=== PATIENT | male | born 1950 | race American Indian/Alaskan Native ===

== ENCOUNTER 2020-05-10 19:20 | Inpatient (IN) | payer MEDICARE ==
[2020-05-10] MEDS ORDERED: LORazepam 2 MG/ML VIAL IM PRN (19:36)
[2020-05-10] MEDS ORDERED: HALOPERIDOL LACTATE 5 MG/1 ML INJ IM PRN (19:36)
[2020-05-11 07:51] LABS: Chol/HDL Ratio 3.16 %
--- NOTE | 2020-05-11 09:11 | History and Physical Report ---
GP History & Physical - History of Present Illness Date of admission: 05/10/20 Date of Examination: 05/11/20 Reason for Admission: Danger to self, Failure of Outpatient Treatment, Unable to care for self History of Present Illness: Michael Rosenberg is a 69y/o male patient who was admitted to the [facility] for wanting to jump out of a window. During my interview with the patient this morning, he is sitting in the dayroom. He says he's "not doing too good." When asked what was wrong, he says "I have a headache." The patient says "I feel nervous." He then says "I'm not sure whats going on, if I knew that I wouldn't be here." He denies SI/HI at present, but states that he "was at one point." The patient says he "hears voices telling me to do stuff." When asked what were they saying, he again replied "If I knew that I wouldn't be here." PAST PSYCHIATRIC HISTORY: Diagnoses: schizophrenia Suicide attempts or Self-harm behavior no response Prior psychiatric hospitalizations no response Substance Abuse history: no response Previous psychiatric medications tried: no response Outpatient treatment: PAST MEDICAL HISTORY: CHF, COPD, CVA Family Psychiatric History: None reported or documented SOCIAL HISTORY Marital Status: no response Living Arrangements: no response Employment Status: no response Access to guns/weapons: no response Education: no response History of Abuse: no response Legal History: no response REVIEW OF SYSTEMS Constitutional: Negative for weight loss ENT: Negative for stridor Respiratory: Negative for cough or hemoptysis All other systems reviewed and are negative MENTAL STATUS EXAMINATION General Appearance and Behavior: Age appropriate, good hygiene, wearing appropriate clothes, fair eye contact Cooperation: Participating/engaged, but Guarded Psychomotor Behavior: Psychomotor normal Mood: depressed, "not good" Affect and affective range: Restricted Thought Process: goal directed Thought Content: passive thoughts of dying Speech: Normal rate, volume Suicidal Ideation: Yes Homicidal Ideation: Denies Hallucinations: Denies Delusions: None elicited Impulse Control: Impaired Insight and Judgment: Limited insight and judgment Memory: Limited Attention: Normal Orientation: Alert, Assessment and Plan (1) Dementia with Behavioral Disturbance Current Visit: Yes Status: Acute Treatment Plan Patient admitted for inpatient psychiatric evaluation, medication adjustment and close monitoring The patient's behavior, mood, sleep and appetite will be closely monitored. Patient enrolled in individual and group therapeutic sessions and encouraged to attend. Patient provided with a safe and structured environment. Patient's physical health needs will be addressed by the Hospitalist. Hospitalist Consulted Labs including CBC, CMP, Lipid profile and Hemoglobin A1C levels ordered for baseline reference Restarted home meds Start Risperidone 0.25mg po BID Social Assessment will be completed and the Real Estate Rep will work with patient and family to ensure a suitable and safe disposition Medication adjustment will be made as clinically indicated Usual Wellness Sikh/Preservation: - Start Trazodone 50 mg po QHS & 50 mg po QHS PRN between 10 PM & 2 AM for insomnia - Start Melatonin 5 mg po QHS to promote circadian rhythm - Start Pierre-3 for brain health, reduce impulsivity, and as adjunctive treatment for mood disorder, continue upon discharge given overall benefits. - Start B1 prophylaxis with 200 mg po for 5 days Estimated days: 5 Post hospital care: primary care provider, psychiatric provider Legal Status: Voluntary Reaction to Hospitalization: Accepting Medications and Allergies Allergies Allergy/AdvReac Type Severity Reaction Status Date / Time No Known Allergies Allergy Verified 10/20/13 10:35 Home Medications Medication Instructions Recorded Confirmed Last Taken Type Aspirin 325 mg PO ONCE 10/15/13 10/15/13 Unknown History Atorvastatin [Lipitor] 80 mg PO QHS 10/15/13 05/11/20 Unknown History Clopidogrel Bisulfate [Plavix] 75 mg PO DAILY 10/15/13 10/15/13 Unknown History Esomeprazole Magnesium [NexIUM] 40 mg PO QDAY 10/15/13 10/15/13 Unknown History Docusate Sodium [Colace CAP] 100 mg PO BID PRN #30 capsule 01/25/15 Unknown Rx Lisinopril [Zestril] 5 mg PO DAILY 05/11/20 05/11/20 Unknown History Memantine [Namenda] 10 mg PO DAILY 05/11/20 05/11/20 Unknown History Valproic Acid [DepaKENE] 250 mg PO BID 05/11/20 05/11/20 Unknown History carvediloL [Coreg] 3.125 mg PO BID 05/11/20 05/11/20 Unknown History Active Meds: Active Medications Aspirin (Aspirin) 325 mg PO ONCE [facility] Atorvastatin Calcium (Lipitor) 80 mg PO QHS [facility] Carvedilol (Coreg) 3.125 mg PO BID [facility] Clopidogrel Bisulfate (Plavix) 75 mg PO DAILY [facility] Docusate Sodium (Colace) 100 mg PO BID PRN PRN Reason: Constipation Haloperidol Lactate (Haldol) 5 mg IM ONCE PRN PRN Reason: Agitation Lisinopril (Zestril) 5 mg PO DAILY [facility] Lorazepam (Ativan) 2 mg IM Q4HR PRN PRN Reason: Agitation Memantine (Memantine) 10 mg PO DAILY [facility] Miscellaneous Medication (Esomeprazole Magnesium [Nexium]) 40 mg PO QDAY [facility] Risperidone (Risperdal) 0.25 mg PO BID [facility] Valproic Acid (Depakene) 250 mg PO BID [facility] Results - Results Labs/Vitals: Laboratory Last Values Hemoglobin A1c 5.8 % (4-6) 05/11/20 06:49 Triglycerides 106 mg/dL (2-149) 05/11/20 06:49 Cholesterol 136 mg/dL (50-199) 05/11/20 06:49 LDL Cholesterol Direct 87 mg/dL (50-130) 05/11/20 06:49 HDL Cholesterol 43 mg/dL (40-59) 05/11/20 06:49 Cholesterol/HDL Ratio 3.16 % 05/11/20 06:49 TSH 2.120 mlU/mL (0.270-4.200) 05/11/20 06:49 Last Vital Signs Temp 97.8 F 05/11/20 07:04 Pulse 65 05/11/20 07:04 Resp 16 05/11/20 07:04 BP 135/73 05/11/20 07:04 Pulse Ox 96 05/11/20 07:04 Physical Examination - Constitutional Vitals: Vital Signs Temp Pulse Resp BP Pulse Ox 97.8 F 65 16 135/73 96 05/11/20 07:04 05/11/20 07:04 05/11/20 07:04 05/11/20 07:04 05/11/20 07:04 Temperature -Last 24 Hours Temperature 97.8 F Temperature 97.7 F Mental Status Exam - Vital signs Last Vital Signs Temp 97.8 F 05/11/20 07:04 Pulse 65 05/11/20 07:04 Resp 16 05/11/20 07:04 BP 135/73 05/11/20 07:04 Pulse Ox 96 05/11/20 07:04 Physician Certification - Certification Statement Physician Certification Statement: This is an acknowledgement statement that MICHAEL MCCOY is a 69 year old M who requires inpatient psychiatric admission for treatment which could reasonably be expected to improve the patient's condition for Estimated period of time patient will need to remain in the hospital: [ ] Plan for post-hospital care: [ ]
[2020-05-11] MEDS: CLOPIDOGREL 75 MG TAB PO SCH (09:28)
[2020-05-11] MEDS: OMEGA-3 FATTY ACIDS/FISH OIL 1 GRAM CAP PO SCH ×2 (09:29→21:28)
[2020-05-11] MEDS: carvediloL 3.125 MG TAB PO SCH ×2 (09:29→21:26)
[2020-05-11] MEDS: MEMANTINE 10 MG TAB PO SCH (09:29)
[2020-05-11] MEDS: risperiDONE 0.25 MG TAB PO SCH ×2 (09:30→21:28)
[2020-05-11] MEDS: VALPROIC ACID 250 MG CAP PO SCH ×2 (09:30→21:28)
[2020-05-11] MEDS: LISINOPRIL 5 MG TAB PO SCH (09:30)
[2020-05-11] MEDS ORDERED: ASPIRIN 325 MG TAB PO SCH (10:00)
[2020-05-11] MEDS ORDERED: DOCUSATE SODIUM 100 MG CAP PO PRN (10:00)
[2020-05-11] MEDS ORDERED: NON-FORMULARY EACH (Esomeprazole Magnesium [Nexium] 40 MG) PO SCH (10:00)
[2020-05-11] MEDS: PANTOPRAZOLE 40 MG TAB PO SCH (10:58)
--- NOTE | 2020-05-11 12:06 | Consultation ---
History of Present Illness - Reason for Consult Consult date: 05/11/20 Medical management Requesting physician: JOANNE GARAY - History of Present Illness 69 YO Male with HTN, CAD, [place], Asthma, COPD, CHF admitted to [facility] for Psychiatric stabilization. Consult placed by Dr. Garay for medical management. Patient seen and evaluated in the recreation room. Patient resting comfortably. No reported nursing events. Patient denies any new complaints. Patient denies fever, chills, chest pain, palpitation, productive cough, skin rash, recent ill contacts, or known exposure to COVID-19. Past History Past Medical History: acute FL, CAD, heart failure, hypertension, other (See HPI) Past Surgical History: No surgical history, Other (Reviewed) Social history: single. denies: smoking, alcohol abuse, prescription drug abuse Family history: diabetes, hypertension Medications and Allergies Allergies Allergy/AdvReac Type Severity Reaction Status Date / Time No Known Allergies Allergy Verified 10/20/13 10:35 Home Medications Medication Instructions Recorded Confirmed Last Taken Type Aspirin 325 mg PO ONCE 10/15/13 10/15/13 Unknown History Atorvastatin [Lipitor] 80 mg PO QHS 10/15/13 05/11/20 Unknown History Clopidogrel Bisulfate [Plavix] 75 mg PO DAILY 10/15/13 10/15/13 Unknown History Esomeprazole Magnesium [NexIUM] 40 mg PO QDAY 10/15/13 10/15/13 Unknown History Docusate Sodium [Colace CAP] 100 mg PO BID PRN #30 capsule 01/25/15 Unknown Rx Furosemide [Lasix] 20 mg PO QDAY #30 tablet 05/11/20 Unknown Rx Lisinopril [Zestril] 5 mg PO DAILY 05/11/20 05/11/20 Unknown History Memantine 10 mg PO DAILY 05/11/20 05/11/20 Unknown History Valproic Acid [Depakene] 250 mg PO BID 05/11/20 05/11/20 Unknown History carvediloL [Coreg] 3.125 mg PO BID 05/11/20 05/11/20 Unknown History Active Meds: Active Medications Aspirin (Aspirin) 325 mg PO ONCE [facility] Stop: 05/11/20 12:30 Last Admin: 05/11/20 10:58 Dose: 325 mg Documented by: Atorvastatin Calcium (Lipitor) 80 mg PO QHS [facility] Carvedilol (Coreg) 3.125 mg PO BID [facility] Last Admin: 05/11/20 09:29 Dose: 3.125 mg Documented by: Clopidogrel Bisulfate (Plavix) 75 mg PO DAILY [facility] Last Admin: 05/11/20 09:28 Dose: 75 mg Documented by: Docusate Sodium (Colace) 100 mg PO BID PRN PRN Reason: Constipation Fish Oil (Fish Oil) 2,000 mg PO BID [facility] Last Admin: 05/11/20 09:29 Dose: 2,000 mg Documented by: Haloperidol Lactate (Haldol) 5 mg IM ONCE PRN PRN Reason: Agitation Lisinopril (Zestril) 5 mg PO DAILY [facility] Last Admin: 05/11/20 09:30 Dose: 5 mg Documented by: Lorazepam (Ativan) 2 mg IM Q4HR PRN PRN Reason: Agitation Melatonin (Melatonin) 5 mg PO QHS PRN PRN Reason: Sleep Memantine (Memantine) 10 mg PO DAILY [facility] Last Admin: 05/11/20 09:29 Dose: 10 mg Documented by: Pantoprazole Sodium (Protonix) 40 mg PO DAILY [facility] Last Admin: 05/11/20 10:58 Dose: 40 mg Documented by: Risperidone (Risperdal) 0.25 mg PO BID [facility] Last Admin: 05/11/20 09:30 Dose: 0.25 mg Documented by: Trazodone HCl (Desyrel) 50 mg PO QHS [facility] Valproic Acid (Depakene) 250 mg PO BID [facility] Last Admin: 05/11/20 09:30 Dose: 250 mg Documented by: Review of Systems Constitutional: no weight loss, no weight gain, no fever, no sweats Ears, nose, mouth and throat: no ear pain, no ear discharge, no nose pain, no nasal congestion Cardiovascular: no chest pain, no orthopnea, no palpitations, no edema Respiratory: no cough, no hemoptysis, no dyspnea on exertion Gastrointestinal: no nausea, no vomiting, no constipation Genitourinary Male: no hematuria, no discharge, no urinary hesitancy, no incontinence Rectal: no pain, no bleeding Musculoskeletal: no low back pain, no redness of joints Integumentary: no deferred, no sores, no boils Neurological: no transient paralysis, no paralysis, no numbness, no syncope Psychiatric: no memory loss, no insomnia, no change in libido, no suicidal ideation Endocrine: no cold intolerance, no heat intolerance, no polydipsia, no nocturia, no flushing Hematologic/Lymphatic: no easy bleeding, no lymphedema Allergic/Immunologic: no allergic rhinitis, no persistent infections Exam - Constitutional Vitals: Temp Pulse Resp BP Pulse Ox 97.8 F 65 16 135/73 96 05/11/20 07:04 05/11/20 09:29 05/11/20 07:04 05/11/20 09:29 05/11/20 07:04 General appearance: Present: no acute distress, well-nourished, obese - EENT Eyes: Present: PERRL ENT: hearing intact, clear oral mucosa - Neck Neck: Present: supple, normal ROM - Respiratory Respiratory effort: normal Respiratory: bilateral: CTA - Cardiovascular Heart Sounds: Present: S1 & S2. Absent: rub, click - Extremities Extremities: pulses symmetrical, No edema Peripheral Pulses: within normal limits - Abdominal General gastrointestinal: Present: soft, non-tender, non-distended, normal bowel sounds Male genitourinary: Present: normal - Integumentary Integumentary: Present: clear, warm, dry - Musculoskeletal Musculoskeletal: gait normal, strength equal bilaterally - Psychiatric Psychiatric: appropriate mood/affect, intact judgment & insight - Neurologic Neurologic: CNII-XII intact, moves all extremities Assessment and Plan - Patient Problems (1) Hypertension Current Visit: Yes Status: Acute Qualifiers: Hypertension type: essential hypertension Qualified Code(s): I10 - Essential (primary) hypertension Plan to address problem: Continue medical management, monitor blood pressure every shift, hold antihypertensive therapy for systolic blood pressure less than 100 (2) CAD (coronary artery disease) Current Visit: No Status: Chronic Qualifiers: Associated angina: without angina Plan to address problem: Supportive care, antiplatelet therapy, risk factor reduction. (3) CHF (congestive heart failure) Current Visit: No Status: Chronic Plan to address problem: No clinical symptoms of CHF decompensation at this time, continue diuresis, strict I's/O, monitor urine output every shift, daily weight, low-sodium diet.
[2020-05-11] MEDS: ACETAMINOPHEN 325 MG TAB PO PRN (13:22)
[2020-05-11] MEDS: traZODone 50 MG TAB PO SCH (21:28)
[2020-05-11] MEDS ORDERED: MELATONIN 5 MG TAB PO PRN (22:00)
[2020-05-12] MEDS: OMEGA-3 FATTY ACIDS/FISH OIL 1 GRAM CAP PO SCH ×3 (01:15→21:14)
[2020-05-12] MEDS: risperiDONE 0.25 MG TAB PO SCH ×3 (01:15→21:12)
[2020-05-12] MEDS: traZODone 50 MG TAB PO SCH ×2 (01:15→21:15)
[2020-05-12] MEDS: VALPROIC ACID 250 MG CAP PO SCH ×3 (01:15→21:15)
[2020-05-12] MEDS: carvediloL 3.125 MG TAB PO SCH ×3 (01:15→21:11)
--- NOTE | 2020-05-12 09:01 | Progress Note ---
Subjective Date of service: 05/12/20 Principal diagnosis: Dementia with Behavioral Disturbance, Major Depressive Disorder Subjective Comment: During my interview with the patient this morning, he is awake in the dayroom. He is calm and cooperative. When asking him how he felt, he initially says, "I don't know. You tell me." He says he's "walking around with severe depression." The patient says "I don't know what to do about it." He denies SI/HI at present, "but says I thought about it last night, but no I'm not ready to leave here." He says he slept good and his appetite is good." He denies hallucinations of any kind. Reason for continued inpatient treatment: The patient continue to be depressed and have thoughts of dying. REVIEW OF SYSTEMS Constitutional: Negative for weight loss ENT: Negative for stridor Respiratory: Negative for cough or hemoptysis All other systems reviewed and are negative MENTAL STATUS EXAMINATION General Appearance and Behavior: Age appropriate, good hygiene, wearing appropriate clothes, fair eye contact, calm and cooperative Cooperation: Participating/engaged, but Guarded Psychomotor Behavior: Psychomotor normal Mood: depressed Affect and affective range: Restricted Thought Process: goal directed Thought Content: passive thoughts of dying Speech: Normal rate, volume Suicidal Ideation: Yes Homicidal Ideation: Denies Hallucinations: Denies Delusions: None elicited Impulse Control: Impaired Insight and Judgment: Limited insight and judgment Memory: Limited Attention: Normal Orientation: Alert, Assessment and Plan (1) Dementia with Behavioral Disturbance Current Visit: Yes Status: Acute (2) Major Depressive Disorder Treatment Plan Patient admitted for inpatient psychiatric evaluation, medication adjustment and close monitoring The patient's behavior, mood, sleep and appetite will be closely monitored. Patient enrolled in individual and group therapeutic sessions and encouraged to attend. Patient provided with a safe and structured environment. Patient's physical health needs will be addressed by the Hospitalist. Hospitalist Consulted Labs including CBC, CMP, Lipid profile and Hemoglobin A1C levels ordered for baseline reference Started Zoloft 25mg po daily Social Assessment will be completed and the Superintendent Storage Area will work with patient and family to ensure a suitable and safe disposition Medication adjustment will be made as clinically indicated Usual Wellness Spiritism/Preservation: - Start Trazodone 50 mg po QHS & 50 mg po QHS PRN between 10 PM & 2 AM for insomnia - Start Melatonin 5 mg po QHS to promote circadian rhythm - Start Tererro-3 for brain health, reduce impulsivity, and as adjunctive treatment for mood disorder, continue upon discharge given overall benefits. - Start B1 prophylaxis with 200 mg po for 5 days Estimated days: 5 Post hospital care: primary care provider, psychiatric provider Legal Status: Voluntary Reaction to Hospitalization: Accepting Medications and Allergies Allergies Allergy/AdvReac Type Severity Reaction Status Date / Time No Known Allergies Allergy Verified 10/20/13 10:35 Home Medications Medication Instructions Recorded Confirmed Last Taken Type Aspirin 325 mg PO ONCE 10/15/13 05/12/20 Unknown History Atorvastatin [Lipitor] 80 mg PO QHS 10/15/13 05/11/20 Unknown History Clopidogrel Bisulfate [Plavix] 75 mg PO DAILY 10/15/13 05/12/20 Unknown History Esomeprazole Magnesium [NexIUM] 40 mg PO QDAY 10/15/13 05/12/20 Unknown History Docusate Sodium [Colace CAP] 100 mg PO BID PRN #30 capsule 01/25/15 05/12/20 Unknown Rx Furosemide [Lasix] 20 mg PO QDAY #30 tablet 05/11/20 05/12/20 Unknown Rx Lisinopril [Zestril] 5 mg PO DAILY 05/11/20 05/11/20 Unknown History Memantine 10 mg PO DAILY 05/11/20 05/11/20 Unknown History Valproic Acid [Depakene] 250 mg PO BID 05/11/20 05/11/20 Unknown History carvediloL [Coreg] 3.125 mg PO BID 05/11/20 05/11/20 Unknown History Active Meds: Active Medications Acetaminophen (Tylenol) 650 mg PO Q6H PRN PRN Reason: Pain, Mild (1-3) Last Admin: 05/11/20 13:22 Dose: 650 mg Documented by: Atorvastatin Calcium (Lipitor) 80 mg PO QHS [facility] Last Admin: 05/12/20 01:15 Dose: 80 mg Documented by: Carvedilol (Coreg) 3.125 mg PO BID [facility] Last Admin: 05/12/20 01:15 Dose: 3.125 mg Documented by: Clopidogrel Bisulfate (Plavix) 75 mg PO DAILY [facility] Last Admin: 05/11/20 09:28 Dose: 75 mg Documented by: Docusate Sodium (Colace) 100 mg PO BID PRN PRN Reason: Constipation Fish Oil (Fish Oil) 2,000 mg PO BID [facility] Last Admin: 05/12/20 01:15 Dose: 2,000 mg Documented by: Furosemide (Lasix) 20 mg PO QDAY [facility] Haloperidol Lactate (Haldol) 5 mg IM ONCE PRN PRN Reason: Agitation Lisinopril (Zestril) 5 mg PO DAILY [facility] Last Admin: 05/11/20 09:30 Dose: 5 mg Documented by: Lorazepam (Ativan) 2 mg IM Q4HR PRN PRN Reason: Agitation Melatonin (Melatonin) 5 mg PO QHS PRN PRN Reason: Sleep Memantine (Memantine) 10 mg PO DAILY [facility] Last Admin: 05/11/20 09:29 Dose: 10 mg Documented by: Pantoprazole Sodium (Protonix) 40 mg PO DAILY [facility] Last Admin: 05/11/20 10:58 Dose: 40 mg Documented by: Risperidone (Risperdal) 0.25 mg PO BID [facility] Last Admin: 05/12/20 01:15 Dose: 0.25 mg Documented by: Trazodone HCl (Desyrel) 50 mg PO QHS [facility] Last Admin: 05/12/20 01:15 Dose: 50 mg Documented by: Valproic Acid (Depakene) 250 mg PO BID [facility] Last Admin: 05/12/20 01:15 Dose: 250 mg Documented by: Results - Results Labs/Vitals: Laboratory Last Values Hemoglobin A1c 5.8 % (4-6) 05/11/20 06:49 Triglycerides 106 mg/dL (2-149) 05/11/20 06:49 Cholesterol 136 mg/dL (50-199) 05/11/20 06:49 LDL Cholesterol Direct 87 mg/dL (50-130) 05/11/20 06:49 HDL Cholesterol 43 mg/dL (40-59) 05/11/20 06:49 Cholesterol/HDL Ratio 3.16 % 05/11/20 06:49 TSH 2.120 mlU/mL (0.270-4.200) 05/11/20 06:49 Last Vital Signs Temp 97.8 F 05/11/20 19:29 Pulse 60 05/12/20 01:15 Resp 20 05/11/20 19:29 BP 126/59 05/12/20 01:15 Pulse Ox 99 05/11/20 19:29
[2020-05-12] MEDS: CLOPIDOGREL 75 MG TAB PO SCH (10:08)
[2020-05-12] MEDS: SERTRALINE 25 MG TAB PO SCH (10:08)
[2020-05-12] MEDS: PANTOPRAZOLE 40 MG TAB PO SCH (10:08)
[2020-05-12] MEDS: MEMANTINE 10 MG TAB PO SCH (10:08)
[2020-05-12] MEDS: FUROSEMIDE 20 MG TAB PO SCH (10:08)
[2020-05-12] MEDS: LISINOPRIL 5 MG TAB PO SCH (10:08)
[2020-05-12] MEDS: ACETAMINOPHEN 325 MG TAB PO PRN (17:17)
--- NOTE | 2020-05-13 09:07 | Progress Note ---
Subjective Date of service: 05/13/20 Principal diagnosis: Dementia with Behavioral Disturbance, Major Depressive Disorder Subjective Comment: During my interview with the patient this morning, he is awake in the dayroom. He is calm and cooperative. When asking him how he felt, he shakes his hand back and forth. When asking him what that meant he says "shaky. I don't really know, just shaky." He says he "thoughts of doing something to myself, but they come and go." He verbalizes visual hallucinations, he says "I can't recognize it. But if I'm walking I see somebody standing there while I'm walking by." Reason for continued inpatient treatment: The patient continue to be depressed and have thoughts of dying, and having hallucinations. REVIEW OF SYSTEMS Constitutional: Negative for weight loss ENT: Negative for stridor Respiratory: Negative for cough or hemoptysis All other systems reviewed and are negative MENTAL STATUS EXAMINATION General Appearance and Behavior: Age appropriate, good hygiene, wearing ap propriate clothes, fair eye contact, calm and cooperative Cooperation: Participating/engaged, but Guarded Psychomotor Behavior: Psychomotor normal Mood: "shaky" Affect and affective range: Restricted Thought Process: goal directed Thought Content: passive thoughts of dying Speech: Normal rate, volume Suicidal Ideation: Yes Homicidal Ideation: Denies Hallucinations: Visual Delusions: None elicited Impulse Control: Impaired Insight and Judgment: Limited insight and judgment Memory: Limited Attention: Normal Orientation: Alert, Assessment and Plan (1) Dementia with Behavioral Disturbance Current Visit: Yes Status: Acute (2) Major Depressive Disorder Treatment Plan Patient admitted for inpatient psychiatric evaluation, medication adjustment and close monitoring The patient's behavior, mood, sleep and appetite will be closely monitored. Patient enrolled in individual and group therapeutic sessions and encouraged to attend. Patient provided with a safe and structured environment. Patient's physical health needs will be addressed by the Hospitalist. Hospitalist Consulted Labs including CBC, CMP, Lipid profile and Hemoglobin A1C levels ordered for baseline reference Started Zoloft 25mg po daily yesterday Increased Risperidone 0.5mg po BID Social Assessment will be completed and the Audiometric Technician will work with patient and family to ensure a suitable and safe disposition Medication adjustment will be made as clinically indicated Usual Wellness [employer]/Preservation: - Start Trazodone 50 mg po QHS & 50 mg po QHS PRN between 10 PM & 2 AM for insomnia - Start Melatonin 5 mg po QHS to promote circadian rhythm - Start [place]-3 for brain health, reduce impulsivity, and as adjunctive treatment for mood disorder, continue upon discharge given overall benefits. - Start B1 prophylaxis with 200 mg po for 5 days Estimated days: 3 Post hospital care: primary care provider, psychiatric provider Legal Status: Voluntary Reaction to Hospitalization: Accepting Medications and Allergies Allergies Allergy/AdvReac Type Severity Reaction Status Date / Time No Known Allergies Allergy Verified 10/20/13 10:35 Home Medications Medication Instructions Recorded Confirmed Last Taken Type Aspirin 325 mg PO ONCE 10/15/13 05/12/20 Unknown History Atorvastatin [Lipitor] 80 mg PO QHS 10/15/13 05/11/20 Unknown History Clopidogrel Bisulfate [Plavix] 75 mg PO DAILY 10/15/13 05/12/20 Unknown History Esomeprazole Magnesium [NexIUM] 40 mg PO QDAY 10/15/13 05/12/20 Unknown History Docusate Sodium [Colace CAP] 100 mg PO BID PRN #30 capsule 01/25/15 05/12/20 Unknown Rx Furosemide [Lasix] 20 mg PO QDAY #30 tablet 05/11/20 05/12/20 Unknown Rx Lisinopril [Zestril] 5 mg PO DAILY 05/11/20 05/11/20 Unknown History Memantine 10 mg PO DAILY 05/11/20 05/11/20 Unknown History Valproic Acid [Depakene] 250 mg PO BID 05/11/20 05/11/20 Unknown History carvediloL [Coreg] 3.125 mg PO BID 05/11/20 05/11/20 Unknown History Active Meds: Active Medications Acetaminophen (Tylenol) 650 mg PO Q6H PRN PRN Reason: Pain, Mild (1-3) Last Admin: 05/12/20 17:17 Dose: 650 mg Documented by: Atorvastatin Calcium (Lipitor) 80 mg PO QHS [facility] Last Admin: 05/12/20 21:12 Dose: 80 mg Documented by: Carvedilol (Coreg) 3.125 mg PO BID [facility] Last Admin: 05/12/20 21:11 Dose: 3.125 mg Documented by: Clopidogrel Bisulfate (Plavix) 75 mg PO DAILY [facility] Last Admin: 05/12/20 10:08 Dose: 75 mg Documented by: Docusate Sodium (Colace) 100 mg PO BID PRN PRN Reason: Constipation Fish Oil (Fish Oil) 2,000 mg PO BID [facility] Last Admin: 05/12/20 21:14 Dose: 2,000 mg Documented by: Furosemide (Lasix) 20 mg PO QDAY [facility] Last Admin: 05/12/20 10:08 Dose: 20 mg Documented by: Haloperidol Lactate (Haldol) 5 mg IM ONCE PRN PRN Reason: Agitation Lisinopril (Zestril) 5 mg PO DAILY [facility] Last Admin: 05/12/20 10:08 Dose: 5 mg Documented by: Lorazepam (Ativan) 2 mg IM Q4HR PRN PRN Reason: Agitation Melatonin (Melatonin) 5 mg PO QHS PRN PRN Reason: Sleep Memantine (Memantine) 10 mg PO DAILY [facility] Last Admin: 05/12/20 10:08 Dose: 10 mg Documented by: Pantoprazole Sodium (Protonix) 40 mg PO DAILY [facility] Last Admin: 05/12/20 10:08 Dose: 40 mg Documented by: Risperidone (Risperdal) 0.25 mg PO BID [facility] Last Admin: 05/12/20 21:12 Dose: 0.25 mg Documented by: Sertraline HCl (Zoloft) 25 mg PO QDAY [facility] Last Admin: 05/12/20 10:08 Dose: 25 mg Documented by: Trazodone HCl (Desyrel) 50 mg PO QHS [facility] Last Admin: 05/12/20 21:15 Dose: 50 mg Documented by: Valproic Acid (Depakene) 250 mg PO BID [facility] Last Admin: 05/12/20 21:15 Dose: 250 mg Documented by: Results - Results Labs/Vitals: Laboratory Last Values Hemoglobin A1c 5.8 % (4-6) 05/11/20 06:49 Triglycerides 106 mg/dL (2-149) 05/11/20 06:49 Cholesterol 136 mg/dL (50-199) 05/11/20 06:49 LDL Cholesterol Direct 87 mg/dL (50-130) 05/11/20 06:49 HDL Cholesterol 43 mg/dL (40-59) 05/11/20 06:49 Cholesterol/HDL Ratio 3.16 % 05/11/20 06:49 TSH 2.120 mlU/mL (0.270-4.200) 05/11/20 06:49 Last Vital Signs Temp 98.6 F 05/12/20 19:37 Pulse 81 05/12/20 21:11 Resp 16 05/12/20 19:37 BP 132/79 05/12/20 21:11 Pulse Ox 97 05/12/20 19:37
[2020-05-13] MEDS: MEMANTINE 10 MG TAB PO SCH (10:10)
[2020-05-13] MEDS: PANTOPRAZOLE 40 MG TAB PO SCH (10:10)
[2020-05-13] MEDS: FUROSEMIDE 20 MG TAB PO SCH (10:11)
[2020-05-13] MEDS: VALPROIC ACID 250 MG CAP PO SCH ×2 (10:11→21:02)
[2020-05-13] MEDS: LISINOPRIL 5 MG TAB PO SCH (10:11)
[2020-05-13] MEDS: CLOPIDOGREL 75 MG TAB PO SCH (10:11)
[2020-05-13] MEDS: SERTRALINE 25 MG TAB PO SCH (10:11)
[2020-05-13] MEDS: OMEGA-3 FATTY ACIDS/FISH OIL 1 GRAM CAP PO SCH ×2 (10:11→21:02)
[2020-05-13] MEDS: carvediloL 3.125 MG TAB PO SCH ×2 (10:15→21:01)
[2020-05-13] MEDS: ACETAMINOPHEN 325 MG TAB PO PRN (10:53)
[2020-05-13] MEDS: risperiDONE 0.25 MG TAB PO SCH ×2 (10:53→21:01)
[2020-05-13] MEDS ORDERED: IBUPROFEN 800 MG TAB PO PRN (17:28)
--- NOTE | 2020-05-13 18:37 | Progress Note ---
Assessment and Plan - Patient Problems (1) Hypertension Current Visit: Yes Status: Acute Qualifiers: Hypertension type: essential hypertension Qualified Code(s): I10 - Essential (primary) hypertension Plan to address problem: Continue medical management, monitor blood pressure every shift, hold antihypertensive therapy for systolic blood pressure less than 100 (2) CAD (coronary artery disease) Current Visit: No Status: Chronic Qualifiers: Associated angina: without angina Plan to address problem: Supportive care, antiplatelet therapy, risk factor reduction. (3) CHF (congestive heart failure) Current Visit: No Status: Chronic Plan to address problem: No clinical symptoms of CHF decompensation at this time, continue diuresis, strict I's/O, monitor urine output every shift, daily weight, low-sodium diet. History Interval history: 69 YO Male with HTN, CAD, [place], Asthma, COPD, CHF admitted to [facility] for Psychiatric stabilization. Patient seen and evaluated in the recreation room. Patient resting comfortably. No reported nursing events. Patient denies any new complaints. Hospitalist Physical - Constitutional Vitals: Temp Pulse Resp BP Pulse Ox 98.6 F 75 16 113/61 97 05/12/20 19:37 05/13/20 10:15 05/12/20 19:37 05/13/20 10:15 05/12/20 19:37 General appearance: Present: no acute distress, well-nourished, obese - EENT Eyes: Present: PERRL ENT: hearing intact - Neck Neck: Present: supple - Respiratory Respiratory: bilateral: CTA - Cardiovascular Rhythm: regular Heart Sounds: Present: S1 & S2 - Extremities Extremities: no ischemia Peripheral Pulses: within normal limits - Abdominal General gastrointestinal: soft, non-tender, non-distended - Integumentary Integumentary: Present: clear, dry - Psychiatric Psychiatric: cooperative - Neurologic Neurologic: CNII-XII intact Results - Labs Labs: Laboratory Last Values Hemoglobin A1c 5.8 % (4-6) 05/11/20 06:49 Triglycerides 106 mg/dL (2-149) 05/11/20 06:49 Cholesterol 136 mg/dL (50-199) 05/11/20 06:49 LDL Cholesterol Direct 87 mg/dL (50-130) 05/11/20 06:49 HDL Cholesterol 43 mg/dL (40-59) 05/11/20 06:49 Cholesterol/HDL Ratio 3.16 % 05/11/20 06:49 TSH 2.120 mlU/mL (0.270-4.200) 05/11/20 06:49 Cloud/IV: Voiding Method Toilet Active Medications - Current Medications Current Medications: Generic Name Dose Route Start Last Admin Trade Name Freq PRN Reason Stop Dose Admin Acetaminophen 650 mg 05/11/20 13:00 05/13/20 10:53 Tylenol PO 650 mg Q6H PRN Administration Pain, Mild (1-3) Atorvastatin Calcium 80 mg 05/11/20 22:00 05/12/20 21:12 Lipitor PO 80 mg QHS EVAN Administration Carvedilol 3.125 mg 05/11/20 10:00 05/13/20 10:15 Coreg PO 3.125 mg BID EVAN Administration Clopidogrel Bisulfate 75 mg 05/11/20 10:00 05/13/20 10:11 Plavix PO 75 mg DAILY EVAN Administration Docusate Sodium 100 mg 05/11/20 10:00 Colace PO BID PRN Constipation Fish Oil 2,000 mg 05/11/20 10:00 05/13/20 10:11 Fish Oil PO 2,000 mg BID EVAN Administration Furosemide 20 mg 05/12/20 10:00 05/13/20 10:11 Lasix PO 20 mg QDAY EVAN Administration Haloperidol Lactate 5 mg 05/10/20 19:36 Haldol IM ONCE PRN Agitation Ibuprofen 800 mg 05/13/20 17:28 Ibuprofen PO Q8H PRN Pain, Mild (1-3) Lisinopril 5 mg 05/11/20 10:00 05/13/20 10:11 Zestril PO 5 mg DAILY EVAN Administration Lorazepam 2 mg 05/10/20 19:36 Ativan IM Q4HR PRN Agitation Melatonin 5 mg 05/11/20 22:00 Melatonin PO QHS PRN Sleep Memantine 10 mg 05/11/20 10:00 05/13/20 10:10 Memantine PO 10 mg DAILY EVAN Administration Pantoprazole Sodium 40 mg 05/11/20 10:00 05/13/20 10:10 Protonix PO 40 mg DAILY EVAN Administration Risperidone 0.5 mg 05/13/20 10:00 05/13/20 10:53 Risperdal PO 0.5 mg BID EVAN Administration Sertraline HCl 25 mg 05/12/20 10:00 05/13/20 10:11 Zoloft PO 25 mg QDAY EVAN Administration Trazodone HCl 50 mg 05/11/20 22:00 05/12/20 21:15 Desyrel PO 50 mg QHS EVAN Administration Valproic Acid 250 mg 05/11/20 10:00 05/13/20 10:11 Depakene PO 250 mg BID EVAN Administration
[2020-05-13] MEDS: traZODone 50 MG TAB PO SCH (21:01)
[2020-05-14] MEDS: carvediloL 3.125 MG TAB PO SCH ×2 (09:57→22:32)
[2020-05-14] MEDS: PANTOPRAZOLE 40 MG TAB PO SCH (09:59)
[2020-05-14] MEDS: FUROSEMIDE 20 MG TAB PO SCH (09:59)
[2020-05-14] MEDS: OMEGA-3 FATTY ACIDS/FISH OIL 1 GRAM CAP PO SCH ×2 (09:59→22:31)
[2020-05-14] MEDS: SERTRALINE 25 MG TAB PO SCH (10:00)
[2020-05-14] MEDS: CLOPIDOGREL 75 MG TAB PO SCH (10:01)
[2020-05-14] MEDS: risperiDONE 0.25 MG TAB PO SCH ×2 (10:01→22:31)
[2020-05-14] MEDS: VALPROIC ACID 250 MG CAP PO SCH ×2 (10:01→22:32)
[2020-05-14] MEDS: MEMANTINE 10 MG TAB PO SCH (10:01)
[2020-05-14] MEDS: LISINOPRIL 5 MG TAB PO SCH (10:02)
--- NOTE | 2020-05-14 12:29 | Progress Note ---
Subjective Date of service: 05/14/20 Principal diagnosis: Dementia with Behavioral Disturbance, Major Depressive Disorder Subjective Comment: During my interview with the patient this morning, he is awake in the dayroom. He is calm and cooperative. He says "my mind feels like it's racing." The p atient states he "didn't sleep last night" despite nursing note saying he slept all nigh. The patient verbalizes feeling depressed. He denies SI/HI. When asked about hallucinations, the patient reports "I'm here but feels like I'm not here." He could not elaborate. Reason for continued inpatient treatment: The patient continue to be depressed and having hallucinations. REVIEW OF SYSTEMS Constitutional: Negative for weight loss ENT: Negative for stridor Respiratory: Negative for cough or hemoptysis All other systems reviewed and are negative MENTAL STATUS EXAMINATION General Appearance and Behavior: Age appropriate, good hygiene, wearing appropriate clothes, fair eye contact, calm and cooperative Cooperation: Participating/engaged, but Guarded Psychomotor Behavior: Psychomotor normal Mood: "depressed" Affect and affective range: Restricted Thought Process: Racing thoughts Thought Content: passive thoughts of dying Speech: Normal rate, volume Suicidal Ideation: Denies Homicidal Ideation: Denies Hallucinations: Visual Delusions: None elicited Impulse Control: Impaired Insight and Judgment: Limited insight and judgment Memory: Limited Attention: Normal Orientation: Alert, Assessment and Plan (1) Dementia with Behavioral Disturbance Current Visit: Yes Status: Acute (2) Major Depressive Disorder Treatment Plan Patient admitted for inpatient psychiatric evaluation, medication adjustment and close monitoring The patient's behavior, mood, sleep and appetite will be closely monitored. Patient enrolled in individual and group therapeutic sessions and encouraged to attend. Patient provided with a safe and structured environment. Patient's physical health needs will be addressed by the Hospitalist. Hospitalist Consulted Labs including CBC, CMP, Lipid profile and Hemoglobin A1C levels ordered for baseline reference Increased Zoloft 50mg po daily Social Assessment will be completed and the Warp Tying Machine Knotter will work with patient and family to ensure a suitable and safe disposition Medication adjustment will be made as clinically indicated Usual Wellness Orthodox/Preservation: - Start Trazodone 50 mg po QHS & 50 mg po QHS PRN between 10 PM & 2 AM for insomnia - Start Melatonin 5 mg po QHS to promote circadian rhythm - Start [place]-3 for brain health, reduce impulsivity, and as adjunctive treatment for mood disorder, continue upon discharge given overall benefits. - Start B1 prophylaxis with 200 mg po for 5 days Estimated days: 3 Post hospital care: primary care provider, psychiatric provider Legal Status: Voluntary Reaction to Hospitalization: Accepting Medications and Allergies Allergies Allergy/AdvReac Type Severity Reaction Status Date / Time No Known Allergies Allergy Verified 10/20/13 10:35 Home Medications Medication Instructions Recorded Confirmed Last Taken Type Aspirin 325 mg PO ONCE 10/15/13 05/12/20 Unknown History Atorvastatin [Lipitor] 80 mg PO QHS 10/15/13 05/11/20 Unknown History Clopidogrel Bisulfate [Plavix] 75 mg PO DAILY 10/15/13 05/12/20 Unknown History Esomeprazole Magnesium [NexIUM] 40 mg PO QDAY 10/15/13 05/12/20 Unknown History Docusate Sodium [Colace CAP] 100 mg PO BID PRN #30 capsule 01/25/15 05/12/20 Unknown Rx Furosemide [Lasix] 20 mg PO QDAY #30 tablet 05/11/20 05/12/20 Unknown Rx Lisinopril [Zestril] 5 mg PO DAILY 05/11/20 05/11/20 Unknown History Memantine 10 mg PO DAILY 05/11/20 05/11/20 Unknown History Valproic Acid [Depakene] 250 mg PO BID 05/11/20 05/11/20 Unknown History carvediloL [Coreg] 3.125 mg PO BID 05/11/20 05/11/20 Unknown History Active Meds: Active Medications Acetaminophen (Tylenol) 650 mg PO Q6H PRN PRN Reason: Pain, Mild (1-3) Last Admin: 05/13/20 10:53 Dose: 650 mg Documented by: Atorvastatin Calcium (Lipitor) 80 mg PO QHS [facility] Last Admin: 05/13/20 21:02 Dose: 80 mg Documented by: Carvedilol (Coreg) 3.125 mg PO BID [facility] Last Admin: 05/14/20 09:57 Dose: 3.125 mg Documented by: Clopidogrel Bisulfate (Plavix) 75 mg PO DAILY [facility] Last Admin: 05/14/20 10:01 Dose: 75 mg Documented by: Docusate Sodium (Colace) 100 mg PO BID PRN PRN Reason: Constipation Fish Oil (Fish Oil) 2,000 mg PO BID [facility] Last Admin: 05/14/20 09:59 Dose: 2,000 mg Documented by: Furosemide (Lasix) 20 mg PO QDAY [facility] Last Admin: 05/14/20 09:59 Dose: 20 mg Documented by: Haloperidol Lactate (Haldol) 5 mg IM ONCE PRN PRN Reason: Agitation Ibuprofen (Ibuprofen) 800 mg PO Q8H PRN PRN Reason: Pain, Mild (1-3) Last Admin: 05/13/20 20:23 Dose: 800 mg Documented by: Lisinopril (Zestril) 5 mg PO DAILY [facility] Last Admin: 05/14/20 10:02 Dose: 5 mg Documented by: Lorazepam (Ativan) 2 mg IM Q4HR PRN PRN Reason: Agitation Melatonin (Melatonin) 5 mg PO QHS PRN PRN Reason: Sleep Last Admin: 05/13/20 20:23 Dose: 5 mg Documented by: Memantine (Memantine) 10 mg PO DAILY [facility] Last Admin: 05/14/20 10:01 Dose: 10 mg Documented by: Pantoprazole Sodium (Protonix) 40 mg PO DAILY [facility] Last Admin: 05/14/20 09:59 Dose: 40 mg Documented by: Risperidone (Risperdal) 0.5 mg PO BID [facility] Last Admin: 05/14/20 10:01 Dose: 0.5 mg Documented by: Sertraline HCl (Zoloft) 25 mg PO QDAY [facility] Last Admin: 05/14/20 10:00 Dose: 25 mg Documented by: Trazodone HCl (Desyrel) 50 mg PO QHS [facility] Last Admin: 05/13/20 21:01 Dose: 50 mg Documented by: Valproic Acid (Depakene) 250 mg PO BID [facility] Last Admin: 05/14/20 10:01 Dose: 250 mg Documented by: Results - Results Labs/Vitals: Laboratory Last Values Hemoglobin A1c 5.8 % (4-6) 05/11/20 06:49 Triglycerides 106 mg/dL (2-149) 05/11/20 06:49 Cholesterol 136 mg/dL (50-199) 05/11/20 06:49 LDL Cholesterol Direct 87 mg/dL (50-130) 05/11/20 06:49 HDL Cholesterol 43 mg/dL (40-59) 05/11/20 06:49 Cholesterol/HDL Ratio 3.16 % 05/11/20 06:49 TSH 2.120 mlU/mL (0.270-4.200) 05/11/20 06:49 Last Vital Signs Temp 98.6 F 05/14/20 06:35 Pulse 60 05/14/20 10:02 Resp 16 05/14/20 06:35 BP 105/60 05/14/20 10:02 Pulse Ox 97 05/14/20 06:35
--- NOTE | 2020-05-14 13:30 | XRay Report ---
CHEST 1 VIEW 05/14/2020 1:17 PM INDICATION / CLINICAL INFORMATION: r/o TB. COMPARISON: Chest x-ray on 05/04/2020 FINDINGS: SUPPORT DEVICES: None. HEART / MEDIASTINUM: No significant abnormality. LUNGS / PLEURA: No significant pulmonary or pleural abnormality. No pneumothorax. ADDITIONAL FINDINGS: No significant additional findings. IMPRESSION: 1. No acute findings. No radiographic evidence of pulmonary tuberculosis. Signer Name: Shaun Montano MD Signed: 05/14/2020 1:26 PM Workstation Name: [id number]
[2020-05-14] MEDS: hydrOXYzine PAMOATE 25 MG CAP PO SCH ×2 (16:41→22:32)
--- NOTE | 2020-05-14 20:45 | Progress Note ---
Assessment and Plan - Patient Problems (1) Hypertension Current Visit: Yes Status: Acute Qualifiers: Hypertension type: essential hypertension Qualified Code(s): I10 - Essential (primary) hypertension Plan to address problem: Continue medical management, monitor blood pressure every shift, hold antihypertensive therapy for systolic blood pressure less than 100 (2) CAD (coronary artery disease) Current Visit: No Status: Chronic Qualifiers: Associated angina: without angina Plan to address problem: Supportive care, antiplatelet therapy, risk factor reduction. (3) CHF (congestive heart failure) Current Visit: No Status: Chronic Plan to address problem: No clinical symptoms of CHF decompensation at this time, continue diuresis, strict I's/O, monitor urine output every shift, daily weight, low-sodium diet. History Interval history: 69 YO Male with HTN, CAD, [place], Asthma, COPD, CHF admitted to [facility] for Psychiatric stabilization. Patient seen and evaluated in the recreation room. Patient resting comfortably. Patient cooperative with exam and interview. No reported nursing events. Patient denies any new complaints. Hospitalist Physical - Constitutional Vitals: Temp Pulse Resp BP Pulse Ox 98.6 F 60 16 105/60 97 05/14/20 06:35 05/14/20 10:02 05/14/20 06:35 05/14/20 10:02 05/14/20 06:35 General appearance: Present: no acute distress, well-nourished, obese - EENT Eyes: Present: PERRL, EOM intact ENT: hearing intact - Neck Neck: Present: supple - Respiratory Respiratory: bilateral: CTA - Cardiovascular Rhythm: regular Heart Sounds: Present: S1 & S2 Peripheral Pulses: within normal limits - Abdominal General gastrointestinal: soft, non-tender, non-distended - Integumentary Integumentary: Present: clear, dry - Psychiatric Psychiatric: cooperative - Neurologic Neurologic: CNII-XII intact Results - Labs Labs: Laboratory Last Values Hemoglobin A1c 5.8 % (4-6) 05/11/20 06:49 Triglycerides 106 mg/dL (2-149) 05/11/20 06:49 Cholesterol 136 mg/dL (50-199) 05/11/20 06:49 LDL Cholesterol Direct 87 mg/dL (50-130) 05/11/20 06:49 HDL Cholesterol 43 mg/dL (40-59) 05/11/20 06:49 Cholesterol/HDL Ratio 3.16 % 05/11/20 06:49 TSH 2.120 mlU/mL (0.270-4.200) 05/11/20 06:49 Cloud/IV: Voiding Method Toilet Active Medications - Current Medications Current Medications: Generic Name Dose Route Start Last Admin Trade Name Freq PRN Reason Stop Dose Admin Acetaminophen 650 mg 05/11/20 13:00 05/13/20 10:53 Tylenol PO 650 mg Q6H PRN Administration Pain, Mild (1-3) Atorvastatin Calcium 80 mg 05/11/20 22:00 05/13/20 21:02 Lipitor PO 80 mg QHS EVAN Administration Carvedilol 3.125 mg 05/11/20 10:00 05/14/20 09:57 Coreg PO 3.125 mg BID EVAN Administration Clopidogrel Bisulfate 75 mg 05/11/20 10:00 05/14/20 10:01 Plavix PO 75 mg DAILY EVAN Administration Docusate Sodium 100 mg 05/11/20 10:00 Colace PO BID PRN Constipation Fish Oil 2,000 mg 05/11/20 10:00 05/14/20 09:59 Fish Oil PO 2,000 mg BID EVAN Administration Furosemide 20 mg 05/12/20 10:00 05/14/20 09:59 Lasix PO 20 mg QDAY EVAN Administration Haloperidol Lactate 5 mg 05/10/20 19:36 Haldol IM ONCE PRN Agitation Hydroxyzine Pamoate 25 mg 05/14/20 15:00 05/14/20 16:41 Vistaril PO 25 mg BID EVAN Administration Ibuprofen 800 mg 05/13/20 17:28 05/13/20 20:23 Ibuprofen PO 800 mg Q8H PRN Administration Pain, Mild (1-3) Lisinopril 5 mg 05/11/20 10:00 05/14/20 10:02 Zestril PO 5 mg DAILY EVAN Administration Lorazepam 2 mg 05/10/20 19:36 Ativan IM Q4HR PRN Agitation Melatonin 5 mg 05/11/20 22:00 05/13/20 20:23 Melatonin PO 5 mg QHS PRN Administration Sleep Memantine 10 mg 05/11/20 10:00 05/14/20 10:01 Memantine PO 10 mg DAILY [facility]AN Administration Pantoprazole Sodium 40 mg 05/11/20 10:00 05/14/20 09:59 Protonix PO 40 mg DAILY [facility]AN Administration Risperidone 0.5 mg 05/13/20 10:00 05/14/20 10:01 Risperdal PO 0.5 mg BID EVAN Administration Sertraline HCl 50 mg 05/15/20 10:00 Zoloft PO QDAY EVAN Trazodone HCl 50 mg 05/11/20 22:00 05/13/20 21:01 Desyrel PO 50 mg QHS EVAN Administration Valproic Acid 250 mg 05/11/20 10:00 05/14/20 10:01 Depakene PO 250 mg BID EVAN Administration
[2020-05-14] MEDS: traZODone 50 MG TAB PO SCH (22:32)
--- NOTE | 2020-05-15 08:37 | Discharge Summary ---
Providers - Providers Date of Admission: 05/10/20 22:08 Date of discharge: 05/15/20 Attending physician: JOANNE GARAY MD 05/10/20 19:32 Consult to Physician [CONS] Routine Comment: Consulting Provider: DARREL CLAIRE Physician Instructions: Reason For Exam: Medical Management Primary care physician: RUBY ENGINEER Hospitalization Reason for admission: SI Admitting Diagnosis: F02.81 - DEMENTIA IN OTH DISEASES CLASSD ELSWHR W BEHAVIORAL DISTURB Hospital course: The patient was provided inpatient psychiatric treatment with safe and supportive care, medication adjustment, adverse effect monitoring, medical evaluations, medical treatments, assessment and psycho-education. The patient's mood, cognition, behavior, moral support are improved and stabilized. St the time of discharge, the patient had no endangering behavior and no debilitating adverse effects. The patient agreed on potential consequences of no treatment and gave informed consent. Disposition: - TO HOME OR SELFCARE Time spent for discharge: 40 Allergies/Adverse Reactions: Allergies No Known Allergies Allergy (Verified 10/20/13 10:35) Vital Signs: Last Vital Signs Temp 98.2 F 05/15/20 00:10 Pulse 64 05/15/20 00:10 Resp 20 05/15/20 00:10 BP 148/73 05/15/20 00:10 Pulse Ox 98 05/15/20 00:10 Last Lab: Laboratory Last Values Hemoglobin A1c 5.8 % (4-6) 05/11/20 06:49 Triglycerides 106 mg/dL (2-149) 05/11/20 06:49 Cholesterol 136 mg/dL (50-199) 05/11/20 06:49 LDL Cholesterol Direct 87 mg/dL (50-130) 05/11/20 06:49 HDL Cholesterol 43 mg/dL (40-59) 05/11/20 06:49 Cholesterol/HDL Ratio 3.16 % 05/11/20 06:49 TSH 2.120 mlU/mL (0.270-4.200) 05/11/20 06:49 Core Measure Documentation - Palliative Care Palliative Care/ Comfort Measures: Not Applicable - Core Measures Any of the following diagnoses?: none Exam - Constitutional Vitals: Temp Pulse Resp BP Pulse Ox 98.2 F 64 20 148/73 98 05/15/20 00:10 05/15/20 00:10 05/15/20 00:10 05/15/20 00:10 05/15/20 00:10 General appearance: Present: no acute distress - EENT Eyes: Present: PERRL, EOM intact ENT: hearing intact, clear oral mucosa - Neck Neck: Present: supple, normal ROM - Respiratory Respiratory effort: normal Plan Activity: advance as tolerated Weight Bearing Status: Weight Bear as Tolerated Care Plan Goals: maintain good and stable mental health Plan of Treatment: The patient should be compliant with medications, not to use drugs, and not to drink alcohol. The patient understands that if suicidal ideas, homicidal ideas or any endangering feeling arise, the patient should seek assistance including, but not limited to crisis hotline, and emergency room. Health Concerns: LANCE, HTN Assessment: Dementia w/ Behavioral Disturbance Follow up with: PRIMARY CARE, [Primary Care Provider] - 7 Days Prescriptions: traZODone [Desyrel] 50 mg PO QHS #30 tablet Melatonin [Melatonin 5MG TAB] 5 mg PO QHS PRN #30 tablet PRN Reason: Sleep Aspirin 325 mg PO DAILY #30 Docusate Sodium [Colace CAP] 100 mg PO BID PRN #60 capsule PRN Reason: Constipation carvediloL [Coreg] 3.125 mg PO BID #60 Valproic Acid [Depakene] 250 mg PO BID #60 cap [place]-3 Fatty Acids/Fish Oil [Fish Oil] 2,000 mg PO BID #120 capsule Furosemide [Lasix TAB] 20 mg PO QDAY #30 tablet Memantine 10 mg PO DAILY #30 Esomeprazole Magnesium [NexIUM] 40 mg PO QDAY #30 Clopidogrel [Plavix] 75 mg PO DAILY #30 tablet risperiDONE [RisperDAL] 0.5 mg PO BID #60 tablet hydrOXYzine PAMOATE [Vistaril] 25 mg PO BID #60 capsule Lisinopril [Zestril] 5 mg PO DAILY #30 Sertraline [Zoloft] 50 mg PO QDAY #30 tablet
[2020-05-15 09:46] VITALS: BP 107/68
[2020-05-15] MEDS: LISINOPRIL 5 MG TAB PO SCH (09:47)
[2020-05-15] MEDS: OMEGA-3 FATTY ACIDS/FISH OIL 1 GRAM CAP PO SCH (09:47)
[2020-05-15] MEDS: carvediloL 3.125 MG TAB PO SCH (09:47)
[2020-05-15] MEDS: hydrOXYzine PAMOATE 25 MG CAP PO SCH (09:47)
[2020-05-15] MEDS: risperiDONE 0.25 MG TAB PO SCH (09:47)
[2020-05-15] MEDS: VALPROIC ACID 250 MG CAP PO SCH (09:47)
[2020-05-15] MEDS: CLOPIDOGREL 75 MG TAB PO SCH (09:47)
[2020-05-15] MEDS: PANTOPRAZOLE 40 MG TAB PO SCH (09:47)
[2020-05-15] MEDS: FUROSEMIDE 20 MG TAB PO SCH (09:47)
[2020-05-15] MEDS: MEMANTINE 10 MG TAB PO SCH (09:47)
[2020-05-15] MEDS ORDERED: SERTRALINE 50 MG TAB PO SCH (10:00)
== END 2020-05-15 16:59 | disposition home or self-care (01) | DRG 884 ==
LOC: 3A 19:20 → UNDOADMIN 19:20 → 5A 22:08
PROVIDERS: ADMIT Psychiatry & Neurology Psychiatry; ATTEND Psychiatry & Neurology Psychiatry
DX: F03.91 Unspecified dementia, unspecified severity, with behavioral disturbance (principal); F32.9 Major depressive disorder, single episode, unspecified; Z20.828 Contact with and (suspected) exposure to other viral communicable diseases; J44.9 Chronic obstructive pulmonary disease, unspecified; F20.9 Schizophrenia, unspecified; I11.0 Hypertensive heart disease with heart failure; I25.10 Atherosclerotic heart disease of native coronary artery without angina pectoris; I50.9 Heart failure, unspecified; Z79.899 Other long term (current) drug therapy; Z79.82 Long term (current) use of aspirin; Z79.01 Long term (current) use of anticoagulants; I25.2 Old myocardial infarction; Z86.73 Personal history of transient ischemic attack (TIA), and cerebral infarction without residual deficits; Z83.3 Family history of diabetes mellitus; Z82.49 Family history of ischemic heart disease and other diseases of the circulatory system
CPT/HCPCS: 36415; 71045; 80061; 83036; 84443; G0378; A9270-GY; Q0177; U0003

== ENCOUNTER 2020-05-21 18:58 | Emergency (ER) | payer MEDICARE ==
--- NOTE | 2020-05-21 21:07 | Event Note ---
ED Screening Note ED Screening Note: Patient states he has a history of dementia and feels like he has been confused and cannot remember things for a couple of days He states he is also had a cough He states intermittently he does have shortness of breath He denies any nausea, vomiting, diarrhea, headache, fever, chest pain, abdominal pain He also has a past medical history of asthma, hypertension, CHF He has rhonchi on exam This initial assessment/diagnostic orders/clinical plan/treatment(s) is/are subject to change based on patients health status, clinical progression and re- assessment by fellow clinical providers in the ED. Further treatment and workup at subsequent clinical providers discretion. Patient/guardian urged not to elope from the ED as their condition may be serious if not clinically assessed and managed. Initial orders include: Labs, urine, chest x-ray ordered We will send to Main ED for eval
[2020-05-21 21:22] LABS: Basophils % (Auto) 0.4 % (0.0-1.8); Eosinophils # (Auto) 0.2 K/mm3 (0.0-0.4); Eosinophils % (Auto) 2.2 % (0.0-4.3); Hematocrit 34.4 % (35.5-45.6); Hemoglobin 11.6 gm/dl (11.8-15.2); Lymphocytes # (Auto) 1.7 K/mm3 (1.2-5.4); Lymphocytes % (Auto) 21.6 % (13.4-35.0); Mean Corpuscular HGB Conc 34 % (32-34); Mean Corpuscular Volume 89 fl (84-94); Monocytes # (Auto) 0.8 K/mm3 (0.0-0.8); Monocytes % (Auto) 9.8 % (0.0-7.3); Platelet Count 147 K/mm3 (140-440); Red Blood Count 3.88 M/mm3 (3.65-5.03); Red Cell Distribution Width 15.1 % (13.2-15.2)
--- NOTE | 2020-05-21 21:39 | XRay Report ---
CHEST 2 VIEWS INDICATION / CLINICAL INFORMATION: cough, rhonchi on exam, hx of asthma. COMPARISON: 05/14/2020 FINDINGS: SUPPORT DEVICES: None. HEART / MEDIASTINUM: Stable. LUNGS / PLEURA: No significant pulmonary or pleural abnormality. No pneumothorax. ADDITIONAL FINDINGS: No significant additional findings. IMPRESSION: 1. No acute findings. No significant interval change. Signer Name: Jaskaran Wise MD Signed: 05/21/2020 9:35 PM Workstation Name: [id number]
[2020-05-21 22:13] LABS: Alanine Aminotransferase 6 units/L (7-56); Albumin 4.2 g/dL (3.9-5); BUN/Creatinine Ratio 17; Blood Urea Nitrogen 19 mg/dL (9-20); Calcium 9.3 mg/dL (8.4-10.2)
[2020-05-21 23:18] LABS: Bilirubin,Urine NEG (Negative); Blood,Urine NEG (Negative); Color,Urine Yellow (Yellow); Mucus,Urine FEW /HPF
[2020-05-22] MEDS ORDERED: DOCUSATE SODIUM 100 MG CAP PO PRN (00:09)
[2020-05-22] MEDS ORDERED: MELATONIN 5 MG TAB PO PRN (00:09)
--- NOTE | 2020-05-22 00:16 | Emergency Department Report ---
ED General Adult HPI - General Chief complaint: Medical Clearance Stated complaint: GENERAL ILLNESS PUI?: No Time Seen by Provider: 05/21/20 21:05 Source: patient, EMS ( EMS documentation not available at time of chart di ctation ) Mode of arrival: Ambulatory Limitations: Other (Patient is a poor historian) - History of Present Illness Initial comments: The patient was evaluated in the emergency department for symptoms described in the history of present illness. He/she was evaluated in the context of the global COVID-19 pandemic, which necessitated consideration that the patient might be at risk for infection with the virus that causes COVID-19. Institutional protocols and algorithms that pertain to the evaluation of p atients at risk for COVID-19 are in a state of rapid change based on information released by regulatory bodies including the CDC and federal and state organizations. These policies and algorithms were followed during the patient's care in the emergency department. Please note that these policies, procedures and recommendations changed on a rapid basis. Patient is a 69-year-old gentleman. Patient was recently admitted to this hospital. He had a rather prolonged hospital stay. His past medical history includes hypertension, heart disease with IA, asthma, depression, COPD, CHF. He was presumptively diagnosed with autonomic imbalance, initiated on meclizine, plan to obtain inpatient MRI as per recommendations of neurology. However, MRI could not be performed because the patient is confused, and multiple attempts were made to reach the patient's brother, who did not answer phone calls, or voicemails. There was a question as to whether or not the patient had a retained metallic foreign body in his left upper extremity, and therefore, MRI was not obtained. Consulting neurology had suggested CT scan of the brain with and without IV contrast, as well as memory labs, including thiamine, B12, TSH, T4, and follow-up with neurology. It was suspicion for vascular dementia, and or conversion disorder. Patient also seen by psychiatry, cardiology, and case management. He was discharged from the medical service to the psychiatric floor. Today, the patient presents to the ER with a complaint of painless disorientation. He denies headache, neck pain, chest pain, abdominal pain, shortness of breath. He states he is not quite sure where he is. He told the triage nurse that he wanted to "get away from his old lady and out of the house." To me, he has no recollection of this. Patient is not accompanied by friends or family at this time for additional information or collateral information. The patient asks me "do think I need to go to a place where they can help me out?" The patient indicates he is not homicidal or suicidal. Patient indicates he is not having hallucinations. The patient denies physical pain and urinary symptoms at this time. -: unknown Radiation: other Quality: other Consistency: other Improves with: other Worsens with: other - Related Data Home Medications Medication Instructions Recorded Confirmed Last Taken Atorvastatin [Lipitor] 80 mg PO QHS 10/15/13 05/11/20 Unknown Previous Rx's Medication Instructions Recorded Last Taken Type Aspirin 325 mg PO DAILY #30 05/15/20 Unknown Rx Clopidogrel [Plavix] 75 mg PO DAILY #30 tablet 05/15/20 Unknown Rx Docusate Sodium [Colace CAP] 100 mg PO BID PRN #60 capsule 05/15/20 Unknown Rx Esomeprazole Magnesium [NexIUM] 40 mg PO QDAY #30 05/15/20 Unknown Rx Furosemide [Lasix TAB] 20 mg PO QDAY #30 tablet 05/15/20 Unknown Rx Lisinopril [Zestril] 5 mg PO DAILY #30 05/15/20 Unknown Rx Melatonin [Melatonin 5MG TAB] 5 mg PO QHS PRN #30 tablet 05/15/20 Unknown Rx Memantine 10 mg PO DAILY #30 05/15/20 Unknown Rx [place]-3 Fatty Acids/Fish Oil [Fish 2,000 mg PO BID #120 capsule 05/15/20 Unknown Rx Oil] Sertraline [Zoloft] 50 mg PO QDAY #30 tablet 05/15/20 Unknown Rx Valproic Acid [Depakene] 250 mg PO BID #60 cap 05/15/20 Unknown Rx carvediloL [Coreg] 3.125 mg PO BID #60 05/15/20 Unknown Rx hydrOXYzine PAMOATE [Vistaril] 25 mg PO BID #60 capsule 05/15/20 Unknown Rx risperiDONE [RisperDAL] 0.5 mg PO BID #60 tablet 05/15/20 Unknown Rx traZODone [Desyrel] 50 mg PO QHS #30 tablet 05/15/20 Unknown Rx Allergies Allergy/AdvReac Type Severity Reaction Status Date / Time No Known Allergies Allergy Verified 10/20/13 10:35 ED Review of Systems ROS: Stated complaint: GENERAL ILLNESS Other details as noted in HPI Constitutional: denies: fever Eyes: denies: eye discharge Respiratory: denies: cough Cardiovascular: denies: chest pain Gastrointestinal: denies: abdominal pain Genitourinary: denies: dysuria Neurological: weakness, confusion Psychiatric: denies: homicidal thoughts, suicidal thoughts ED Past Medical Hx - Past Medical History Previous Medical History?: Yes Hx Hypertension: Yes Hx CVA: Yes (x3) Hx Heart Attack/AMI: Yes Hx Congestive Heart Failure: Yes Hx Renal Disease: Yes Hx Arthritis: Yes Hx Seizures: Yes Hx Asthma: Yes Hx COPD: Yes Hx Dementia: No Additional medical history: Depression - Surgical History Past Surgical History?: Yes Hx Cholecystectomy: No Hx Appendectomy: No - Social History Smoking Status: Never Smoker Substance Use Type: None - Medications Home Medications: Home Medications Medication Instructions Recorded Confirmed Last Taken Type Atorvastatin [Lipitor] 80 mg PO QHS 10/15/13 05/11/20 Unknown History Aspirin 325 mg PO DAILY #30 05/15/20 Unknown Rx Clopidogrel [Plavix] 75 mg PO DAILY #30 tablet 05/15/20 Unknown Rx Docusate Sodium [Colace CAP] 100 mg PO BID PRN #60 capsule 05/15/20 Unknown Rx Esomeprazole Magnesium [NexIUM] 40 mg PO QDAY #30 05/15/20 Unknown Rx Furosemide [Lasix TAB] 20 mg PO QDAY #30 tablet 05/15/20 Unknown Rx Lisinopril [Zestril] 5 mg PO DAILY #30 05/15/20 Unknown Rx Melatonin [Melatonin 5MG TAB] 5 mg PO QHS PRN #30 tablet 05/15/20 Unknown Rx Memantine 10 mg PO DAILY #30 05/15/20 Unknown Rx Maxwell-3 Fatty Acids/Fish Oil [Fish 2,000 mg PO BID #120 capsule 05/15/20 Unknown Rx Oil] Sertraline [Zoloft] 50 mg PO QDAY #30 tablet 05/15/20 Unknown Rx Valproic Acid [Depakene] 250 mg PO BID #60 cap 05/15/20 Unknown Rx carvediloL [Coreg] 3.125 mg PO BID #60 05/15/20 Unknown Rx hydrOXYzine PAMOATE [Vistaril] 25 mg PO BID #60 capsule 05/15/20 Unknown Rx risperiDONE [RisperDAL] 0.5 mg PO BID #60 tablet 05/15/20 Unknown Rx traZODone [Desyrel] 50 mg PO QHS #30 tablet 05/15/20 Unknown Rx ED Physical Exam - General Limitations: Other (Poor historian, somewhat confused) General appearance: in no apparent distress, anxious, obese - Head Head exam: Present: atraumatic, normocephalic - Eye Eye exam: Present: normal appearance, PERRL, EOMI, other (Visual acuity is intact to finger counting in color perception at a close distance). Absent: nystagmus - ENT ENT exam: Present: normal exam, normal orophraynx, mucous membranes moist, normal external ear exam - Neck Neck exam: Present: normal inspection, full ROM. Absent: tenderness, meningismus - Respiratory Respiratory exam: Present: normal lung sounds bilaterally. Absent: respiratory distress, wheezes, rales, rhonchi, stridor, decreased breath sounds - Cardiovascular Cardiovascular Exam: Present: regular rate, normal rhythm, normal heart sounds. Absent: bradycardia, tachycardia, irregular rhythm, systolic murmur, diastolic murmur, rubs, gallop - GI/Abdominal GI/Abdominal exam: Present: soft. Absent: distended, tenderness, guarding, rebound, rigid, pulsatile mass - Rectal Rectal exam: Present: deferred - Extremities Exam Extremities exam: Present: normal inspection (The muscular compartments are soft and nontender), full ROM, pedal edema (1+ edema in the bilateral lower extremities), other (2+ pulses noted in the bilateral upper and lower extremities). Absent: calf tenderness - Back Exam Back exam: Present: normal inspection. Absent: tenderness, CVA tenderness (R), CVA tenderness (L), paraspinal tenderness, vertebral tenderness - Neurological Exam Neurological exam: Present: alert (Patient is alert to name and location.), other (There is no facial droop. The tongue is midline. The extraocular movements are intact bilaterally. There is 5 out of 5 strength in 4 extremities. Sensation is chronically decreased to light touch in the left upper, left lower extremity. Examination today appears to be fairly unchanged when compared to prior examinations. I do not appreciate any right upper extremity weakness on my examination) - Psychiatric Psychiatric exam: Absent: homicidal ideation, suicidal ideation - Skin Skin exam: Present: warm, dry, intact, normal color. Absent: rash ED Course Vital Signs 05/21/20 05/22/20 19:37 01:13 Temperature 98 F 98.2 F Pulse Rate 80 84 Respiratory 18 16 Rate Blood Pressure 171/93 Blood Pressure 105/54 [Left] O2 Sat by Pulse 98 95 Oximetry - Reevaluation(s) Reevaluation #1: 05/22/20 00:14 Differential diagnosis, including but not limited to: Dementia, case management patient, conversion disorder, malingering, secondary gain, general medical exam Assessment and plan: 69-year-old gentleman who had a rather recent prolonged hospital stay, with nonspecific symptoms. He was medically optimized while here. Patient apparently has been having memory and cognition issues for at least a few weeks, if not longer. Do not clinically suspect acute stroke. Dementia work-up/memory loss work-up as an outpatient work-up. At this point time, and given duration of symptoms, chronicity of symptoms, unchanged exam when compared to prior, do not see indication for emergent MRI. Appropriate laboratory studies, EKG, urinalysis will be obtained. Case management consultation a psychiatric consultation will be obtained. We have reconciled the patient's medications and we will continue them. Disposition will likely be determined by both case management and psychiatry te am. Reevaluation #2: 05/22/20 01:17 Imaging studies, laboratory studies, EKG unchanged from prior. Patient resting comfortably in stretcher at this time. He is in no acute distress. Medications reconciled and continued, with exception of psychiatric medications. Will defer to the psychiatric team to make recommendations on this particular aspect of the patient's care. At this point in time, patient does not appear to have an emergent medical condition that requires inpatient hospitalization. Patient does not appear to have an immediate medical contraindication to psychiatric admission, evaluation, consultation, and/or social work/case management consultation and evaluation. Final disposition as per case management team and psychiatry, admit to psychiatry, versus discharge with outpatient follow-up. ED Medical Decision Making - Lab Data Result diagrams: 05/21/20 21:10 05/21/20 21:10 Vital Signs 05/21/20 19:37 Temperature 98 F Pulse Rate 80 Respiratory 18 Rate Blood Pressure 171/93 O2 Sat by Pulse 98 Oximetry Lab Results 05/21/20 05/21/20 05/21/20 Range/Units 21:10 21:10 Unknown WBC 7.9 (4.5-11.0) K/mm3 RBC 3.88 (3.65-5.03) M/mm3 Hgb 11.6 L (11.8-15.2) gm/dl Hct 34.4 L (35.5-45.6) % MCV 89 (84-94) fl MCH 30 (28-32) pg MCHC 34 (32-34) % RDW 15.1 (13.2-15.2) % Plt Count 147 (140-440) K/mm3 Lymph % (Auto) 21.6 (13.4-35.0) % Morris % (Auto) 9.8 H (0.0-7.3) % Eos % (Auto) 2.2 (0.0-4.3) % Baso % (Auto) 0.4 (0.0-1.8) % Lymph # (Auto) 1.7 (1.2-5.4) K/mm3 Morris # (Auto) 0.8 (0.0-0.8) K/mm3 Eos # (Auto) 0.2 (0.0-0.4) K/mm3 Baso # (Auto) 0.0 (0.0-0.1) K/mm3 Seg Neutrophils % 66.0 (40.0-70.0) % Seg Neutrophils # 5.2 (1.8-7.7) K/mm3 Sodium 139 (137-145) mmol/L Potassium 4.3 (3.6-5.0) mmol/L Chloride 103.4 (98-107) mmol/L Carbon Dioxide 24 (22-30) mmol/L Anion Gap 16 mmol/L BUN 19 (9-20) mg/dL Creatinine 1.1 (0.8-1.3) mg/dL Estimated GFR > 60 ml/min BUN/Creatinine Ratio 17 % Glucose 113 H (75-100) mg/dL Calcium 9.3 (8.4-10.2) mg/dL Total Bilirubin 0.40 (0.1-1.2) mg/dL AST 12 (5-40) units/L ALT 6 L (7-56) units/L Alkaline Phosphatase 119 (35-129) units/L Total Protein 8.1 (6.3-8.2) g/dL Albumin 4.2 (3.9-5) g/dL Albumin/Globulin Ratio 1.1 % Urine Color Yellow (Yellow) Urine Turbidity Clear (Clear) Urine pH 7.0 (5.0-7.0) Ur Specific Gregory 1.021 (1.003-1.030) Urine Protein 30 mg/dl (Negative) mg/dL Urine Glucose (UA) Neg (Negative) mg/dL Urine Ketones Neg (Negative) mg/dL Urine Blood Neg (Negative) Urine Nitrite Neg (Negative) Urine Bilirubin Neg (Negative) Urine Urobilinogen 2.0 (<2.0) mg/dL Ur Leukocyte Esterase Neg (Negative) Urine WBC (Auto) 1.0 (0.0-6.0) /HPF Urine RBC (Auto) 3.0 (0.0-6.0) /HPF Urine Mucus Few /HPF - EKG Data -: EKG Interpreted by Sd EKG shows normal: sinus rhythm Rate: normal - EKG Data When compared to previous EKG there are: no significant change Interpretation: unchanged when compared t (Compared to prior EKG from May 04, 2020) 05/22/20 01:17 Sinus rhythm, 84 bpm. Borderline leftward axis deviation, left ventricular hypertrophy, borderline left anterior fascicular block, T wave abnormalities/i nversions in the lateral leads. Abnormal EKG. Not a STEMI. Fairly unchanged when compared to prior. - Radiology Data Radiology results: report reviewed, image reviewed Print Report Referring Physician: ROSETTE JAIME Patient Name: XAVI MCCOY Date of : 1950 Sex: Male Report Date: 2020-05-21 Report Status: Finalized Findings [address] [address] XRay Report Signed Patient: XAVI MCCOY MR#: [id number] : 1950 Acct:[id number] Age/Sex: 69 / M ADM Date: 05/21/20 Loc: ED Attending Dr: Ordering Physician: RAMSEY SALEH Date of Service: 05/21/20 Procedure(s): XR chest routine 2V Accession Number(s): [id number] cc: RAMSEY SALEH Fluoro Time In Minutes: CHEST 2 VIEWS INDICATION / CLINICAL INFORMATION: cough, rhonchi on exam, hx of asthma. COMPARISON: 05/14/2020 FINDINGS: SUPPORT DEVICES: None. HEART / MEDIASTINUM: Stable. LUNGS / PLEURA: No significant pulmonary or pleural abnormality. No pneumothorax. ADDITIONAL FINDINGS: No significant additional findings. IMPRESSION: 1. No acute findings. No significant interval change. Signer Name: Jaskaran Montoya MD Signed: 05/21/2020 9:35 PM Workstation Name: [id number] Transcribed By: CH Dictated By: JASKARAN MONTOYA Electronically Authenticated By: JASKARAN MONTOYA Signed Date/Time: 05/21/202134 DD/ 32 TD/TT: Print Report Referring Physician: BRIAN LANCASTER Patient Name: XAVI MCCOY Date of : 1950 Sex: Male Report Date: 2020-05-22 Report Status: Finalized Findings [facility] [address] [place] [address] Cat Scan Report Signed Patient: XAVI MCCOY MR#: [id number] : 1950 Acct:[id number] Age/Sex: 69 / M ADM Date: 05/21/20 Loc: ED Attending Dr: Ordering Physician: BRIAN LANCASTER MD Date of Service: 05/21/20 Procedure(s): CT head/brain w con Accession Number(s): [id number] cc: BRIAN LANCASTER MD CT head/brain w con INDICATION: ISSUES WITH memory, cognition. TECHNIQUE: CT head with IV contrast. All CT scans at this location are performed using CT dose reduction for ALARA by means of automated exposure control. COMPARISON: Head CT done on 05/04/2020 FINDINGS: There is no evidence of hemorrhage, hydrocephalus, brain edema, or mass effect/mass lesion. There is a stable chronic infarct in the right MCA territory. There is also a stable small chronic infarct in the left THERAPY SITE COORDINATOR territory. There is stable mild global brain parenchymal volume loss, without adverse change from prior. The included paranasal sinuses and mastoid air cells are clear. The orbits appear unremarkable. IMPRESSION: 1. No acute int racranial abnormality or adverse change from 05/04/2020. Stable chronic findings as detailed above. Signer Name: Shaun Montano MD Signed: 05/22/2020 1:00 AM Workstation Name: [id number] Transcribed By: BELINDA Dictated By: Shaun Montano MD Electronically Authenticated By: Shaun Montano MD Signed Date/Time: 05/22/2099 DD/ TD/TT: Critical care attestation.: If time is entered above; I have spent that time in minutes in the direct care of this critically ill patient, excluding procedure time. ED Disposition Clinical Impression: Case management patient, Memory difficulties Is pt being admited?: No Does the pt Need Aspirin: No Condition: Good Referrals: PRIMARY CARE, [Primary Care Provider] - 3-5 Days
--- NOTE | 2020-05-22 01:05 | Cat Scan Report ---
CT head/brain w con INDICATION: ISSUES WITH memory, cognition. TECHNIQUE: CT head with IV contrast. All CT scans at this location are performed using CT dose reduction for ALA RA by means of automated exposure control. COMPARISON: Head CT done on 05/04/2020 FINDINGS: There is no evidence of hemorrhage, hydrocephalus, brain edema, or mass effect/mass lesion. There is a stable chronic infarct in the right MCA territory. There is also a stable small chronic infarct in the left CLAY PIGEON SETTER territory. There is stable mild global brain parenchymal volume loss, without adverse ch wendy from prior. The included paranasal sinuses and mastoid air cells are clear. The orbits appear unremarkable. IMPRESSION: 1. No acute intracranial abnormality or adverse change from 05/04/2020. Stable chronic findings as de tailed above. Signer Name: Shaun Montano MD Signed: 05/22/2020 1:00 AM Workstation Name: [id number]
[2020-05-22 04:28] LABS: Amphetamine Screen,Urine PRESUMPTIVE NEGATIVE; Benzodiazepines Screen,Urine PRESUMPTIVE NEGATIVE; Cannabinoid Screen,Urine PRESUMPTIVE NEGATIVE; Cocaine Screen,Urine PRESUMPTIVE NEGATIVE; Methadone Screen,Urine PRESUMPTIVE NEGATIVE; Opiate Screen,Urine PRESUMPTIVE NEGATIVE
[2020-05-22] MEDS: LISINOPRIL 5 MG TAB PO SCH (08:24)
--- NOTE | 2020-05-22 09:56 | Consultation ---
History of Present Illness - Reason for Consult Consult date: 05/22/20 Reason for consult: MHE Requesting physician: BRIAN LANCASTER - History of Present Psychiatric Illness Per ED Provider: Patient is a 69-year-old gentleman. Patient was recently admitted to this hospital. He had a rather prolonged hospital stay. His past medical history includes hypertension, heart disease with PA, asthma, depression, COPD, CHF.He was presumptively diagnosed with autonomic imbalance, initiated on meclizine, plan to obtain inpatient MRI as per recommendations of neurology. However, MRI could not be performed because the patient is confused, and multiple attempts were made to reach the patient's brother, who did not answer phone calls, or voicemails. There was a question as to whether or not the patient had a retained metallic foreign body in his left upper extremity, and therefore, MRI was not obtained. Consulting neurology had suggested CT scan of the brain with and without IV contrast, as well as memory labs, including thiamine, B12, TSH, T4, and follow-up with neurology. It was suspicion for vascular dementia, and or conversion disorder.Patient also seen by psychiatry, cardiology, and case management.He was discharged from the medical service to the psychiatric floor.Today, the patient presents to the ER with a complaint of painless disorientation. He denies headache, neck pain, chest pain, abdominal pain, shortness of breath. He states he is not quite sure where he is. He told the triage nurse that he wanted to "get away from his old lady and out of the house." To me, he has no recollection of this. Psych HPI Patient is a 69-year-old pleasant Mr. 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 The patient seen in seclusion patient asked why has been placed in seclusion because he is not bothering nobody, patient stated presented to the hospital because he is having chest pains, patient denies any acute depressed mood or suicidal ideation today. Patient denies any auditory or visual sedation and seems to be very forgetful in between. PAST PSYCHIATRIC HISTORY Diagnoses: unknown Suicide attempts or Self-harm behavior: unknown Prior psychiatric hospitalizations: unknown Substance Abuse history: unknown Previous psychiatric medications tried: unknown Outpatient treatment: unknown PAST MEDICAL HISTORY: 3 CVAs Family Psychiatric History: None reported or documented SOCIAL HISTORY Marital Status: single Living Arrangements: retirement Employment Status: unemployed Access to guns/weapons: n/a Education: n/a History of Abuse: n/a Legal History: n/a REVIEW OF SYSTEMS ROS cannot be reliably obtained from the patient due to her confusion and somnolence. MENTAL STATUS EXAMINATION General Appearance and Behavior: Age appropriate, good hygiene, wearing donald ropriate clothes, good eye contact, cooperative polite with questioning. Cooperation: Participating/engaged Psychomotor Behavior: unremarkable and within normal limits Mood: Good Affect and affective range: congruent with mood Thought Process: Logical Thought Content: Logical Speech: Normal volume, Regular rate and rhythm, Intellectual Functioning: Fair Suicidal Ideation: Denies Homicidal Ideation: Denies HI Impulse Control: impaired Insight and Judgment: Impaired Insight, Memory: Impaired Attention: Normal, Orientation: Alert, oriented, anxious Diagnoses: Assessment and Plan - Psychiatric problem (1) Dementia in other diseases classified elsewhere with behavioral disturbance Current Visit: Yes Status: Acute Treatment Plan Patient has history of worsening dementia, there is no acute concerns for inpatient psychiatric management that would be of beneficial to the patient's presenting symptoms at this time. Patient is denying depression or suicidal thoughts which he had repeatedly complained about during his last psych evaluation while admitted to the hospital. Believe patient needs social resources at this time. MEDICATIONS: Continue patient's current medication Risks, benefits and alternatives of medications discussed with the patient, qu estions answered and consent obtained from patient. PSYCHOTHERAPY: Supportive psychotherapy provided MEDICAL: Per primary team DELIRIUM PRECAUTIONS: Please re-orient patient frequently, keep lights on during the day, and minimize benzodiazepines and opiates as these medications could worsen patient's confusion. HOME SECURITY PROFESSIONAL: DISPOSITION: Do not Recommend acute inpatient psychiatric hospitalization at this time LEGAL STATUS: Voluntary FOLLOW-UP: Will sign off. Thank you for the consult. Please contact with any questions and/or concerns. Medications and Allergies Allergies Allergy/AdvReac Type Severity Reaction Status Date / Time No Known Allergies Allergy Verified 10/20/13 10:35 Home Medications Medication Instructions Recorded Confirmed Last Taken Type Atorvastatin [Lipitor] 80 mg PO QHS 10/15/13 05/11/20 Unknown History Aspirin 325 mg PO DAILY #30 05/15/20 Unknown Rx Clopidogrel [Plavix] 75 mg PO DAILY #30 tablet 05/15/20 Unknown Rx Docusate Sodium [Colace CAP] 100 mg PO BID PRN #60 capsule 05/15/20 Unknown Rx Esomeprazole Magnesium [NexIUM] 40 mg PO QDAY #30 05/15/20 Unknown Rx Furosemide [Lasix TAB] 20 mg PO QDAY #30 tablet 05/15/20 Unknown Rx Lisinopril [Zestril] 5 mg PO DAILY #30 05/15/20 Unknown Rx Melatonin [Melatonin 5MG TAB] 5 mg PO QHS PRN #30 tablet 05/15/20 Unknown Rx Memantine 10 mg PO DAILY #30 05/15/20 Unknown Rx Biggs-3 Fatty Acids/Fish Oil [Fish 2,000 mg PO BID #120 capsule 05/15/20 Unknown Rx Oil] Sertraline [Zoloft] 50 mg PO QDAY #30 tablet 05/15/20 Unknown Rx Valproic Acid [Depakene] 250 mg PO BID #60 cap 05/15/20 Unknown Rx carvediloL [Coreg] 3.125 mg PO BID #60 05/15/20 Unknown Rx hydrOXYzine PAMOATE [Vistaril] 25 mg PO BID #60 capsule 05/15/20 Unknown Rx risperiDONE [RisperDAL] 0.5 mg PO BID #60 tablet 05/15/20 Unknown Rx traZODone [Desyrel] 50 mg PO QHS #30 tablet 05/15/20 Unknown Rx Active Meds: Active Medications Aspirin (Aspirin) 325 mg PO DAILY [facility] Atorvastatin Calcium (Lipitor) 80 mg PO QHS [facility] Carvedilol (Coreg) 3.125 mg PO BID [facility] Clopidogrel Bisulfate (Plavix) 75 mg PO DAILY [facility] Docusate Sodium (Colace) 100 mg PO BID PRN PRN Reason: Constipation Fish Oil (Fish Oil) 2,000 mg PO BID [facility] Furosemide (Lasix) 20 mg PO QDAY [facility] Hydroxyzine Pamoate (Vistaril) 25 mg PO BID [facility] Lisinopril (Zestril) 5 mg PO DAILY@0800 [facility] Last Admin: 05/22/20 08:24 Dose: 5 mg Documented by: Melatonin (Melatonin) 5 mg PO QHS PRN PRN Reason: Sleep Memantine (Memantine) 10 mg PO DAILY [facility] Pantoprazole Sodium (Protonix) 40 mg PO QDAY [facility] Valproic Acid (Depakene) 250 mg PO BID [facility] Mental Status Exam - Vital signs Last Vital Signs Temp 98.7 F 05/22/20 07:37 Pulse 74 05/22/20 08:24 Resp 18 05/22/20 07:37 BP 164/82 05/22/20 08:24 Pulse Ox 97 05/22/20 07:37 Results Result Diagrams: 05/21/20 21:10 05/21/20 21:10 Abnormal lab results 05/21/20 05/21/20 05/21/20 Range/Units 21:10 21:10 23:49 Hgb 11.6 L (11.8-15.2) gm/dl Hct 34.4 L (35.5-45.6) % [place] % (Auto) 9.8 H (0.0-7.3) % Glucose 113 H (75-100) mg/dL ALT 6 L (7-56) units/L Salicylates 0.3 L (2.8-20.0) mg/dL Acetaminophen (10.0-30.0) ug/mL Valproic Acid 16.7 L (50-100) ug/mL 05/21/20 Range/Units 23:49 Hgb (11.8-15.2) gm/dl Hct (35.5-45.6) % [place] % (Auto) (0.0-7.3) % Glucose (75-100) mg/dL ALT (7-56) units/L Salicylates (2.8-20.0) mg/dL Acetaminophen < 5.0 L (10.0-30.0) ug/mL Valproic Acid (50-100) ug/mL All other labs normal.
[2020-05-22] MEDS: carvediloL 3.125 MG TAB PO SCH ×2 (10:44→21:53)
[2020-05-22] MEDS: ASPIRIN 325 MG TAB PO SCH (10:44)
[2020-05-22] MEDS: PANTOPRAZOLE 40 MG TAB PO SCH (10:45)
[2020-05-22] MEDS: hydrOXYzine PAMOATE 25 MG CAP PO SCH ×2 (10:45→21:54)
[2020-05-22] MEDS: CLOPIDOGREL 75 MG TAB PO SCH (10:45)
[2020-05-22] MEDS: VALPROIC ACID 250 MG CAP PO SCH ×2 (10:45→21:54)
[2020-05-22] MEDS: FUROSEMIDE 20 MG TAB PO SCH (10:45)
[2020-05-22] MEDS: MEMANTINE 10 MG TAB PO SCH (11:14)
[2020-05-22] MEDS: OMEGA-3 FATTY ACIDS/FISH OIL 1 GRAM CAP PO SCH ×2 (11:15→22:29)
[2020-05-23 03:11] VITALS: BP 109/62
[2020-05-23] MEDS: MEMANTINE 10 MG TAB PO SCH (11:16)
[2020-05-23] MEDS: FUROSEMIDE 20 MG TAB PO SCH (11:16)
[2020-05-23] MEDS: hydrOXYzine PAMOATE 25 MG CAP PO SCH (11:17)
[2020-05-23] MEDS: VALPROIC ACID 250 MG CAP PO SCH (11:17)
[2020-05-23] MEDS: OMEGA-3 FATTY ACIDS/FISH OIL 1 GRAM CAP PO SCH (11:17)
[2020-05-23] MEDS: PANTOPRAZOLE 40 MG TAB PO SCH (11:18)
[2020-05-23] MEDS: ASPIRIN 325 MG TAB PO SCH (11:18)
[2020-05-23] MEDS: carvediloL 3.125 MG TAB PO SCH (11:18)
[2020-05-23] MEDS: CLOPIDOGREL 75 MG TAB PO SCH (11:18)
[2020-05-23] MEDS: LISINOPRIL 5 MG TAB PO SCH ×2 (11:22→11:23)
== END 2020-05-23 19:29 | disposition home or self-care (01) ==
LOC: ED 18:58
DX: F03.90 Unspecified dementia, unspecified severity, without behavioral disturbance, psychotic disturbance, mood disturbance, and anxiety (principal); Z79.899 Other long term (current) drug therapy
CPT/HCPCS: 36415; 70460; 71046; 80053; 80164; 80307; 81001; 82550; 82607; 83735; 84439; 84443; 84484; 85025; 93005; 99285; A9270; Q0177; Q9967; 80320; G0480